=== PATIENT | male | born 1995 | race Caucasian/White ===

== ENCOUNTER 2020-06-09 16:24 | Outpatient (CLI) | payer OTHER, SELFPAY ==
--- NOTE | 2020-06-09 16:57 | PC.NURSE ---
10 MINUTES POST INJECTION VISION BECAME BLURRY BECAME DIAPHORIEC, SHKING AND DIZZY. LAID SUPINE VITALS [id number] % RA 911 CALLED AND [facility] ARRIVED AND CARE TRANSFERED
== END 2020-06-09 16:25 | disposition home or self-care (01) ==
LOC: ANHCOVIDVC 16:24
DX: Z23 Encounter for immunization (principal)
CPT/HCPCS: 0001A; 91300

== ENCOUNTER 2020-06-30 16:34 | Outpatient (CLI) | payer OTHER, SELFPAY | END 2020-06-30 16:35 | disposition home or self-care (01) | LOC: ANHCOVIDVC 16:34 | DX: Z23 Encounter for immunization (principal) | CPT/HCPCS: 0002A; 91300 ==

== ENCOUNTER 2021-06-08 11:18 | Outpatient (CLI) | payer OTHER, SELFPAY ==
--- NOTE | ~2021-06-08 | US_ITS ---
EXAMINATION: US thyroid EXAM DATE: 06/08/2021 12:11 INDICATION: E04.9 - Nontoxic goiter, unspecified TECHNIQUE: Multiple grayscale and Doppler images of the thyroid were obtained (by a technologist who performed the scan) and subsequently reviewed. Individual nodules and recommendations may be reporte d in accordance with TI-RADS system as designated by the 2017 ACR White Paper TI-RADS committee. The re is no prior study for comparison. FINDINGS: The right there are lobe measures 4.2 x 1.6 x 1.5 cm, the left measuring 5.2 x 1.5 x 1.3 cm. Dimensio ns mildly enlarged. Homogeneous thyroid echogenicity is expected amount of vascularity. No focal nodu les identified. IMPRESSION: Mild thyromegaly. Reviewed, dictated and finalized at location B. IMPRESSION: Mild thyromegaly.
== END 2021-06-08 11:19 | disposition home or self-care (01) ==
PROVIDERS: PCP Family Medicine; Visit Provider Nurse Practitioner Gerontology
DX: E04.9 Nontoxic goiter, unspecified (principal)
CPT/HCPCS: 76536

== ENCOUNTER 2021-06-29 12:21 | Outpatient (CLI) | payer OTHER, SELFPAY ==
--- NOTE | ~2021-06-29 | NM_ITS ---
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 Scintigraphic images of th e thyroid gland were obtained at 24 hours. Thyroid uptake was calculated by the technologist. FINDINGS: The thyroid uptake is 32.1% (normal 10-30%), with the right lobe measuring 17% uptake and the left 15 .9%. There is no focal area of decreased or increased activity to suggest hypofunctioning or hyperfun ctioning nodule. IMPRESSION: 1. Homogeneous diffuse increased 24 hour thyroid uptake consistent with Graves' disease. Reviewed, dictated and finalized at location A. IMPRESSION: 1. Homogeneous diffuse increased 24 hour thyroid uptake consistent with Graves ' disease.
== END 2021-06-29 12:22 | disposition home or self-care (01) ==
PROVIDERS: PCP Family Medicine; Visit Provider Nurse Practitioner Gerontology
DX: E01.0 Iodine-deficiency related diffuse (endemic) goiter (principal)
CPT/HCPCS: 78014; A9516

== ENCOUNTER 2023-08-14 12:41 | Outpatient (CLI) | payer BC, SELFPAY ==
--- NOTE | ~2023-08-14 | US_ITS ---
EXAMINATION: US scrotum doppler DATE: 08/14/2023 13:18 INDICATION: Right sided scrotal discomfort TECHNIQUE: Testicular sonogram utilizing grayscale and Doppler COMPARISON: None. FINDINGS: The right testis measures 4.7 x 2.6 x 3.2 cm. The left testis measures 4.8 x 2.5 x 2.9 cm. Symmetric normal grayscale appearance to both testes. There is normal vascular flow to both testes. The right e pididymis is normal with normal vascular flow. The left epididymis is normal with normal vascular jose w. There is no varicocele or hydrocele. IMPRESSION: 1. Normal scrotal ultrasound. Reviewed, dictated and finalized at location A.
== END 2023-08-14 12:42 | disposition home or self-care (01) ==
PROVIDERS: PCP Family Medicine; Visit Provider Family Medicine
DX: N50.89 Other specified disorders of the male genital organs (principal)
CPT/HCPCS: 76870; 93976